=== PATIENT | male | born 1990 | race Two or more races ===

== ENCOUNTER 2019-06-19 19:24 | Emergency (ER) | payer SELFPAY ==
[~2019-06-19] VITALS: Ht 177.8 cm; Wt 106.3 kg
[2019-06-19 20:22] VITALS: BP 131/81
== END 2019-06-20 01:54 | disposition home or self-care (01) ==
LOC: ER 19:24
DX: M94.0 Chondrocostal junction syndrome [Tietze] (principal); F12.10 Cannabis abuse, uncomplicated; F17.200 Nicotine dependence, unspecified, uncomplicated
CPT/HCPCS: 71101; 93005; 99283